=== PATIENT | female | born 1970 | race Caucasian/White ===

== ENCOUNTER 2017-11-02 21:29 | Emergency (ER) | payer MEDICAID ==
--- NOTE | 2017-11-02 22:04 | ED Physician Chart ---
ED Chief Complaint/HPI - Patient Information Date Seen:: 11/02/17 Time Seen:: 21:50 Chief Complaint:: laceration History of Present Illness:: Patient sent on scissors 2 days ago. Her last tetanus booster was 12 years ago and she is worried about getting tetanus. Vitals:: Vital Signs - 8 hr 11/02/17 21:35 Temp 98.8 F HR 98 RR 18 BP 180/100 O2 Sat % 100 Historian:: Patient Review:: Nurse's Note Reviewed ED Review of Systems - Review of Systems General/Constitutional: No fever, No chills Skin: Skin lesions Head: No headache Eyes: No loss of vision ENT: No earache, No sore throat, No tinnitus Cardio Vascular: No chest pain Pulmonary: No SOB GI: No nausea, No vomiting, No diarrhea G/U: No dysuria Musculoskeletal: No bone or joint pain Endocrine: No polyuria, No polydipsia Psychiatric: No prior psych history Hematopoietic: No bruising Allergic/Immuno: No urticaria, No angioedema Neurological: No syncope ED Past Medical History - Past Medical History Past Medical History: HTN Family History: HTN Social History: Smoker, Other (smokes about one half pack of cigarettes a day) Surgical History: None Psychiatricy History: None Medication: None Family Medical History - Family Member Mother Ethnicity: Non- Living Status: Still Living Hx Family Hypertension: Yes ED Physical Exam - Physical Examination General/Constitutional: Well-developed, well-nourished, Alert, No distress Head: Atraumatic Eyes: Lids, conjuctiva normal Other Skin comments:: 1 cm healing laceration right medial buttocks; no signs of infection ENMT: External ears, nose nl, Oropharynx nl Neck: No nuchal rigidity Respiratory: Nl effort/Exclusion, Clear to Auscultation, No Wheeze/Rhonchi/Rales Cardio Vascular: RRR, No murmur, gallop, rubs, NL S1 S2 GI: No tenderness/rebounding/guarding : No CVA tenderness Extremities: Normal digits & nails ED Septic Shock - . Is Septic Shock (SBP<90, OR Lactate>4 mmol\L) present?: No - <6hrs of presentation: Vital Signs: Vital Signs - 8 hr 11/02/17 21:35 Temp 98.8 F HR 98 RR 18 BP 180/100 O2 Sat % 100 ED Reassessment (Disposition) - Reassessment Reassessment:: We will give patient a tetanus booster although there is almost no chance she would get tetanus from the injury she describes. Reassessment Condition:: Unchanged - Diagnosis Diagnosis:: Laceration right hemibuttocks - Aftercare/Follow up Instructions Aftercare/Follow-Up Instructions:: Refer to Discharge Instructions - Patient Disposition Discharge/Transfer:: Home Condition at Disposition:: Stable, Unchanged
== END 2017-11-02 22:30 | disposition home or self-care (01) ==
LOC: ER 21:29
DX: S31.811A Laceration without foreign body of right buttock, initial encounter (principal); I10 Essential (primary) hypertension; F17.200 Nicotine dependence, unspecified, uncomplicated; X58.XXXA Exposure to other specified factors, initial encounter; Y93.89 Activity, other specified; Y92.89 Other specified places as the place of occurrence of the external cause; Y99.8 Other external cause status
CPT/HCPCS: Z7502